=== PATIENT | male | born 1950 | race Caucasian/White ===

== ENCOUNTER 2021-06-01 23:28 | Inpatient (IN) | payer MEDICARE ==
[~2021-06-01] VITALS: Ht 177.8 cm; Wt 100.0 kg
--- NOTE | 2021-06-01 23:40 | NUR ---
PT AMBULATORY TO ROOM FOR TRIAGE AT BEDSIDE. PT CHANGED TO GOWN/BLANKET/PILLOW GIVEN.
[2021-06-02] VITALS (9 sets, daily range): BP systolic 112–155; BP diastolic 56–90
[2021-06-02 00:11] LABS: HEMATOCRIT 42.2 % (39.0-50.0); IMMATURE GRANULOCYTES 0.1 % (0.0-5.0); MEAN CELL VOLUME 99.5 fL CALC (80.0-100.0); MEAN CORPUSCULAR HGB CONC 33.2 g/dL CAL (32.0-36.0); NEUT# 8.2 thou/uL (1.82-7.42); RED BLOOD COUNT 4.24 mill/uL (4.70-6.10); RED CELL DISTRI WIDTH 12.3 % (11.5-15.5)
[2021-06-02 00:16] LABS: ALBUMIN 4.5 g/dL (3.2-5.0); ALKALINE PHOSPHATASE 72 u/l (38-126); AMYLASE 69 u/l (30-110); ANION GAP 11 (6-22 (CALC)); BILIRUBIN, TOTAL 0.6 mg/dL (0.0-1.4); BUN 17 mg/dL (8-23); BUN/CREATININE RATIO 16 (12-20 (CALC)); CARBON DIOXIDE 29 mmol/l (22-30); CHLORIDE 108 mmol/l (95-108); GFR > 60 ML/MIN (>=60 (CALC)); GFR FOR AFR.AMER. > 60 ML/MIN (>=60 (CALC)); LIPASE 89 u/l (23-300); POTASSIUM 4.6 mmol/l (3.5-5.1); SGOT/AST 28 u/l (19-48); SODIUM 143 mmol/l (137-146); TOTAL PROTEIN 7.4 g/dL (6.3-8.2)
[2021-06-02 00:27] LABS: MYOGLOBIN 34 ng/mL (0 - 121)
--- NOTE | 2021-06-02 00:52 | NUR ---
REMEDIATED FOR ABD PAIN
--- NOTE | 2021-06-02 01:43 | NUR ---
PAIN AND NAUSEA HAVE COMPLETELY RESOLVED PT TELLS ME
--- NOTE | 2021-06-02 02:08 | NUR ---
18F SALEM SUMP INSERTED PER L NARE TO GASTRUM POSITION CONFIRMED AND CLEAR LIQUIS MOD PRICILLA WITH FOOD FRAGMENTS ASPIRATED PT APPEARES COMFORTABLE
--- NOTE | 2021-06-02 03:15 | NUR ---
REPORT RECEIVED FROM LINCOLN RN
--- NOTE | 2021-06-02 03:15 | NUR ---
PT HAS 500CC CLEAR LIQUID WITH PARTIALLY DIGESTED FOOD FRAGMENTS IN SUSPENSION PT REPORT TO NURSE PADRON ON MS
--- NOTE | 2021-06-02 03:20 | NUR ---
PT TRANSPORTED VIA STRETCHER TO [facility] 277 IN STABLE CONDITION
--- NOTE | 2021-06-02 03:30 | NUR ---
PATIENT ARRIVED TO FLOOR VIA STRETCHER ACCOMPANIED BY LINCOLN CULP
--- NOTE | 2021-06-02 03:30 | NUR ---
PT ALERT AND ORIENTED X3. NG TUBE IN LEFT NARE. CLEAR LUNG SOUNDS, NORMAL HEART SOUNDS. STOMACH DISTENDED BUT SOFT. ACTIVE BOWEL SOUNDS, LAST BOWEL MOVEMENT 06/02, NPO STATUS DISCCUSED. DISCOMFORT THROUGHOUT QUADRANTS. #20 IN LEFT AC. INFUSING NS AT 125ML/HR. CARE PLAN REVIEWED, CALL LIGHT AND BEDSIDE TABLE WITHIN REACH.
--- NOTE | 2021-06-02 03:38 | NUR ---
PT REORT TO NURSE NEREIDA. PT IS PAIN FREE 500CC CLEAR LIQUID WITH PARTRIALLY DIGESTED FOOD FRAGMENTS IN SUSPENSION.
--- NOTE | 2021-06-02 06:00 | NUR ---
PATIENT NG TUBE NOT SUCCTIONING, REPOSTIONED CANISTER AND ADJUSTED SUCCION, 100 ML OUT.
--- NOTE | 2021-06-02 07:30 | NUR ---
RECIEVED REPORT FROM ROBBI PADRON
--- NOTE | 2021-06-02 08:08 | NUR ---
PT RESTING IN SEMI FOWLERS POSITION. PT IS A/O X3. ASSESSMENT AND VITALS COMPLETED. BP 118/82, HR 108, O2 92% ON ROOM AIR. REPSIRATIONS ARE EVEN AND UNLABORED. LUNG SOUNDS ARE CLEAR. HEART RHYTHM NORMAL. BOWEL SOUNDS ACTIVE,LBM 06/01/21.ABD FIRM AND DISTENDED. LEFT NG TUBE NOTED, ABOUT 200 OR ORANGE OUTPUT NOTED. PT CONTINUES TO VOMIT, PT MEDICATED PER EMAR.PT ASSISTED TO CHAIR TO ASSIST WITH GETTING CLEANED UP. PT DENIES OF ANY ADDITIONAL NEEDS AT THIS TIME. ALL SAFETY PRECAUTIONS ARE IN PLACE WITH CALL LIGHT IN REACH. WILL CONTINUE TO MONITOR.
--- NOTE | 2021-06-02 09:30 | NUR ---
DR OTT AND DELFINA,ANCHARLES AT BEDSIDE
--- NOTE | 2021-06-02 11:39 | NUR ---
CYLINDRICAL MIXER INFORMED THAT PT WOULD BE GOING DOWN TO SURGERY LATER IN AFTER NOON. NO NEW ORDERS OBATINED. PT INFORMED
--- NOTE | 2021-06-02 12:15 | NUR ---
PT COMPLAINS OF NAUSEA AND ABD PAIN. DAILUDID ADMINISTERED. VITALS OBATINED BP 155/90, HR 105, O2 84% ON ROOM AIR. 3L NC APPLIED, 93%. RESPIRATIONS REMAINS EVEN AND UNLABORED. #20G LAC REMAINS INFUSING WITH IVF PER ORDER, SITE REMAINS HEALTHY AND PATENT. ADDITINAL EMISIS BAGS PROVIDED. ZOFRAN OR PHENERGAN NOT AVAILABLE AT THIS TIME. ALL SAFTEY PRECAUTIONS ARE IN PLACE WITH CALL LIGHT IN REACH AT BEDSIDE. WILL CONTINUE TO MONITOR
--- NOTE | 2021-06-02 14:36 | NUR ---
PT TRANSPORTED TO OR VIA BED ACCOMPAINED BY OR STAFF IN STABLE CONDITION. LEFT NGT IN PLACE.
--- NOTE | 2021-06-02 18:14 | NUR ---
PT ARRIVED TO [facility] ROOM 277 FROM OR. PT IS A/O X3 BUT DROWSY.VITALS OBATINED. RESPIRATIONS ARE EVEN AND UNLABORED ON 5L NRB. LUNG SOUNDS DIMINISHED.I.S ADMINISTERED. PT TO BE RE-EDUACTED WHEN MORE AWAKE. HEART RHYTHM NORMAL WITH TELE IN PLACE. BOWEL SOUNDS HYPOACTIVE. DRESSING TO ABD REMAINS CDI. ABD BINDER REMAINS IN PLACE. PT COMPLAINS OF ABD PAIN, PT MEDICATED WITH SCHEDULED MEDICTIONS. JUNG CATH IN PLACE. URINE SAMPLE COLLECTED VIA STERILE TECHNIQUE.SCDS IN PLACE. PT DENIES OF ANY ADDITIONAL NEEDS AT THIS TIME. ALL SAFETY PRECAUTIONS ARE IN PLACE WITH CALL LIGHT IN REACH .
[2021-06-02 19:07] LABS: URINE BILIRUBIN - DIPSTICK NEGATIVE (NEGATIVE); URINE BLOOD DIPSTICK NEGATIVE (NEGATIVE); URINE COLOR YELLOW; URINE GLUCOSE - DIPSTICK NEGATIVE (NEGATIVE); URINE KETONE TRACE mg/dL (NEGATIVE); URINE LEUK ESTERASE NEGATIVE (NEGATIVE); URINE PH 6.5 (4.5-8.0); URINE PROTEIN - DIPSTICK NEGATIVE (NEG-TRACE); URINE SPECIFIC GRAVITY 1.025; URINE UROBILINOGEN - DIPSTICK 0.2 E.U./dL (0.2)
[2021-06-02 19:11] LABS: URINE NITRITE - DIPSTICK NEGATIVE (Negative)
--- NOTE | 2021-06-02 20:00 | NUR ---
PATIENT RESTING IN BED AT THIS TIME-AWAKE ALERT AND ORIENTEDX3. O2 VIA O2 MASK IN PLACE WITH O2 SATS WNL. TELE MONITOR IN PLACE WITH LAST READING SR-93. NPO AT THIS TIME EXCEPT FOR SMALL AMT OF ICE CHIPS. NGT TO LEFT NARE INTACT AND DRAINING YELLOW ORANGE FLUID-LIWS. IVF NS PATENT AND INFUSING VIA LEFT AC SITE AT 125CC/HR. JUNG CATH PATENT AND DRAINING KELSI URINE. ABD DRESSINGS INTACT-CLEAN AND DRY. ABD IS DISTENDED WITH BS+. ABD BINDER IN PLACE. SCD'S IN PLACE. INSTRUCTED ON USE OF IS Q1H WHILE AWAKE IN REPS OF 10. ABLE TO DEMONSTRATE PROPER USE OF THE DEVICE. TEMPS IS DOWN AT THIS TIME. SAFETY PRECAUTIONS REINFORCED. CALL LIGHT IN REACH. WILL CONT TO MONITOR.
--- NOTE | 2021-06-02 21:30 | NUR ---
PATIENT RESTING IN BED-MEDICATED [facility] ORDERED VIA LAC SITE. CALL LIGHT IN REACH. WILL CONT TO MONITOR.
--- NOTE | 2021-06-02 22:17 | NUR ---
PATIENT RESTING IN BED AT THIS TIME-MEDICATED FOR PAIN WITH DILAUDID 1MG IVP VIA LEFT AC SITE. IVF NS PATIENT AND INFUSING AT 125CC/HR. SITE REMAINS HEALTHY AT THIS TIME.CALL LIGHT IN REACH. WILL CONT TO MONITOR.
[2021-06-03] VITALS: BP 98/55
--- NOTE | 2021-06-03 03:31 | NUR ---
PATIENT RESTING IN BED AT THIS TIME WITH HOB ELEVATED IN HIGH FOWLERS POSITION. PATIENT IS AWAKE-PAIN LEVEL AT 2-3 AT THIS TIME. NG TUBE TO LIWS DRAINING ORANGE FLUID AT THIS TIME. JUNG PATENT AND DRAINING KELSI URINE. IVF NS PATENT AND INFUSING VIA LAC SITE AT 125CC/HR. SITE REMAINS HEALTHY AT THIS TIME. O2 VIA MASK IN PLACE AT 5LPM-O2 SATS 94% AT THIS TIME. SCD'S IN PLACE. ABD DRESSING INTACT WITH ABD BINDER IN PLACE. REMAINS NPO TAKING ONLY SMALL AMT OF ICE CHIPS. SAFETY PRECAUTIONS REINFORCED. CALL LIGHT IN REACH. WILL CONT TO MONITOR.
[2021-06-03 04:00] VITALS: BP 111/58
--- NOTE | 2021-06-03 05:12 | NUR ---
PATIENT RESTING IN BED-NG TUBE CONT TO DRAIN YELLOW ORANGE FLUID. IVF NS PATENT AND INFUSING VIA LEFT AC AT 125CC/HR. PATIENT MEDICATED FOR PAIN WITH DILAUDID 1MG IVP FOR 4/10 ON PAIN SCALE. JUNG PATENT AND DRAINING KELSI URINE. ABD DRESSINGS REMAIN CDI. ABD BINDER IN PLACE. O2 VIA NASAL MASK IN PLACE. TELE MONITOR IN PLACE. CALL LIGHT IN REACH. WILL CONT TO MONITOR.
[2021-06-03 05:49] LABS: HEMOGLOBIN 12.7 g/dl (14.0-18.0); MEAN CELL VOLUME 101.6 fL CALC (80.0-100.0); MEAN CORPUSCULAR HGB 33.1 pG CALC (26.0-32.0); MEAN CORPUSCULAR HGB CONC 32.6 g/dL CAL (32.0-36.0); RED BLOOD COUNT 3.84 mill/uL (4.70-6.10); RED CELL DISTRI WIDTH 12.7 % (11.5-15.5)
[2021-06-03 06:04] LABS: CREATININE 1.8 mg/dL (0.7-1.3); MAGNESIUM 1.5 mg/dL (1.6-2.3); POTASSIUM 3.9 mmol/l (3.5-5.1)
[2021-06-03 07:33] VITALS: BP 116/67
--- NOTE | 2021-06-03 07:39 | NUR ---
SHIFT CHANGE REPORT, PT AWAKE ALERT AND ORIENTED RESTING IN BED, O2 @ 5L VIA FACE MASK IN PLACE, NG TUBE IN PLACE TO LEFT NARE, TELE MONITOR IN PLACE, JUNG CATHETER IN PLACE DRAINING CLEAR KELSI URINE, SCD IN PLACE. DR PEREZ HERE NOW ROUNDING, GAVE VERBAL ORDERS TO RO REMOVE NG TUBE AND JUNG CATHETER. CALL JAMESON IN REACH, WILL CONTINUE TO MONITOR.
--- NOTE | 2021-06-03 10:00 | NUR ---
NG TUBE REMOVED PER ORDER
[2021-06-03 10:51] VITALS: BP 118/71
--- NOTE | 2021-06-03 12:00 | NUR ---
AMBULATING IN ROOM, ANALGESIC RELIEVED PAIN, URINATED AFTER REMOVING CATHETER, WILL CONTINUE TO MONITOR.
[2021-06-03 15:15] VITALS: BP 130/70
--- NOTE | 2021-06-03 16:00 | NUR ---
CONTINUES TO AMBULATE IN ROOM, C/O MILD BLOATING DISCOMFORT TO ABDOMEN REPORTS BURPING BUT NOT PASSING FLATULENCE YET, FAMILY MEMBERS VISITING, WILL CONTINUE TO MONITOR.
[2021-06-03 19:00] VITALS: BP 134/82
--- NOTE | 2021-06-03 20:00 | NUR ---
PATIENT SITTING UP IN BED-AWAKE ALERT AND ORIENTEDX3. PATIENT TAKING PO FLUJIDS AND TOLERATING WELL. PATIENT DENIES ANY N/V AT THIS TIME. ABD IS DISTENDED-SOFT. HYPOACTIVE BS AT THIS TIME. ABD DRESSING IS CDI WITH ABD BINDER IN PLACE. TELE MONITOR IN PLACE. IVF NS PATENT AND INFUSING VIA LAC SITE AT 125CC/HR. SITE REMAINS HEALTHY AT THIS TIME. SCD'S IN PLACE. VOIDED 300CC OF KELSI URINE IN URINAL. ENCOURAGED USE OF IS Q1H W/A. PATIENT IS ABLE TO DEMONSTRATE PROPER USE OF THE DEVICE. SAFETY PRECAUTIONS REINFORCED. CALL LIGHT IN REACH. WILL CONT TO MONITOR.
--- NOTE | 2021-06-03 22:00 | NUR ---
PATIENT IS UP AND AMBULATING IN THE HALLS SEVERAL TIMES-TOLERATED FAIR-OUT OF BREATH AFTER APPROX 10MINS OF AMBULATING IN THE BONDS AND RETURNED TO BED. O2 SAT IS IN THE HIGH 80'S. O2 VIA NASAL CANNULA AT 2LPM REAPPLIED AND O2 SAT BACK UP TO THE LOW TO MID 90'S. PATIENT MEDICATED FOR POST-OP PAIN WITH DILAUDID 1MG IVP ORDERED FOR PAIN. SAFETY PRECAUTIONS REINFORCED. CALL LIGHT IN REACH. WILL CONT TO MONITOR.
--- NOTE | 2021-06-03 23:46 | NUR ---
PATIENT SITTING UP IN BED WITH O2 VIA NASAL CANNULA IN PLACE AT 2LPM. EYES ARE CLOSED. RESPS ARE EVEN AND UNLABORED. TELE MONITOR IN PLACE. IVF NS PATENT AND INFUSING VIA LAC SITE AT 125CC/HR. ZOSYN HUNG ORDERED. CALL LIGHT IN REACH. WILL CONT TO MONITOR.
[2021-06-04] VITALS: BP 138/83
[2021-06-04 03:55] VITALS: BP 147/85
[2021-06-04 05:44] LABS: HEMATOCRIT 34.7 % (39.0-50.0); HEMOGLOBIN 11.2 g/dl (14.0-18.0); MEAN CELL VOLUME 101.8 fL CALC (80.0-100.0); MEAN CORPUSCULAR HGB 32.8 pG CALC (26.0-32.0); MEAN CORPUSCULAR HGB CONC 32.3 g/dL CAL (32.0-36.0); RED BLOOD COUNT 3.41 mill/uL (4.70-6.10); RED CELL DISTRI WIDTH 12.4 % (11.5-15.5)
--- NOTE | 2021-06-04 05:52 | NUR ---
PATIENT SITTING ON THE SIDE OF THE BED-MEDICATED FOR POST-OP PAIN WITH DILAUDID 1MG IVP. ZOSYN HUNG AND INFUSING ORDERED. IVF NS PATENT AND INFUSING AT 125CC/HR. TELE MONITOR IN PLACE. IV SITE TO LAC REDRESSED. ABD IS DISTENDED-NO FLATUS YET. SAFETY PRECAUTIONS REINFORCED. CALL LIGHT IN REACH. WILL CONT TO MONITOR.
[2021-06-04 06:17] LABS: ANION GAP 9 (6-22 (CALC)); BUN 19 mg/dL (8-23); BUN/CREATININE RATIO 22 (12-20 (CALC)); CARBON DIOXIDE 25 mmol/l (22-30); CHLORIDE 107 mmol/l (95-108); CREATININE 0.9 mg/dL (0.7-1.3); GFR > 60 ML/MIN (>=60 (CALC)); GFR FOR AFR.AMER. > 60 ML/MIN (>=60 (CALC)); POTASSIUM 3.5 mmol/l (3.5-5.1); SODIUM 138 mmol/l (137-146)
--- NOTE | 2021-06-04 07:00 | NUR ---
RECIEVED REPORT FROM ROBBI INIGUEZ
[2021-06-04 08:19] VITALS: BP 128/77
--- NOTE | 2021-06-04 08:19 | NUR ---
PT RESTING IN SEMI FOWLERS POSITION. PT IS A/O X3. ASSESSMENT AND VITALS COMPLETED. BP 128/77, HR 91, O2 96% ON 2L NC. RESPIRATIONS ARE EVEN AND UNLABROED WITH NO DISTRESS NOTED. LUNG SOUNDS ARE CLEAR. HEART RHYTHM NORMAL WITH TELE IN PLACE. BOWEL SOUNDS ARE HYPOACTIVE, PT STATES HE HS PASSED A LITTLE GAS, LBM 12/26. PULSES STRONG. #20G LAC INFUSING WITH IVF PER ORDER, SITE REMAINS HEALTHY AND PATENT. SKIN INTACT. DRESSING TO ABD REMAINS CDI. ABD BINDER IN PLACE. I.S AT BEDSIDE, PT RE-EDUCATED ON USE, PT VERBALIZED UNDERSTANDING. PT COMPLAINS OF 4/10 PAIN, PT TO BE MEDICATED PER EMAR. ALL SAFETY PRECAUTIONS ARE IN PLACE WITH CALL LIGHT IN REACH. WILL CONTINUE TO MONITOR.
--- NOTE | 2021-06-04 10:15 | NUR ---
PT TRANSPORTED TO RADIOLOGY VIA WHEECHAIR ACCOMPAINED BY TENZIN TRENT
--- NOTE | 2021-06-04 10:20 | NUR ---
PT ARRIVED BACK TO [facility] ROOM 277 VIA WHEELCHAIR IN STABLE CONDITION. PT ASSISTED BACK INTO BED. PT DENIES OF ANY NEEDS. ALL SAFETY PRECAUTIONS ARE IN PLACE. WILL CONTINUE TO MONITOR
[2021-06-04 10:50] VITALS: BP 133/74
--- NOTE | 2021-06-04 11:20 | NUR ---
DR JONES AND DELFINA,ANRP AT BEDSIDE
--- NOTE | 2021-06-04 13:15 | NUR ---
DR PEREZ AT BEDSIDE
--- NOTE | 2021-06-04 13:27 | NUR ---
DRESSING T ABD CHANGED. NONADHESIVE, ABD PAD AND TAPE APPLIED. PT TOLERATED WELL. ABD BNDER REAPPLIED. RESPITRATIONS REMAINS EVEN AND UNLABORED WITH NO DISTRESS NOTED. NEW #22G LH STARTED. #20G LAC LEAK, REMOVED WITH CATH STILL INTACT. TELE MONTORING IN PLACE. PT REQUEST PAIN MEDIACTION. PT TO BE MEDICATED PER EMAR. ALL SAFETY PRECAUTIONS ARE IN PLACE WITH CALL LIGHT IN REACH. WILL CONTINUE TO MONITOR
[2021-06-04 15:46] VITALS: BP 157/83
--- NOTE | 2021-06-04 16:35 | NUR ---
PT RESTING IN SEMI FOWLERS POSITION. RESPIRATIONS AREMAINS EVEN AND UNLABORED WITH NO DISTRESS NOTED. #22G LH REMAINS IN PLACE. TELE MONITORING IN PLACE. DRESSING TO ABD REMAINS CDI WITH ABD BINDER IN PLACE. PT COMPLAINS OF 7/10 PAIN, PT TO BE MEDICATED PER EMAR. PT DENIES OF ANY ADDITIONAL PAINS OR DISCOMFORTS AT THIS TIME. ALL SAFETY PRECAUTIONS ARE IN PLACE WITH CALL LIGHT IN REACH. WILL CONTINUE TO MONITORING.
--- NOTE | 2021-06-04 17:07 | NUR ---
REASSESSMENT OF TEMP RESULTING IN 103.6. TYLENOL ADMINISTERED. PT MEDICATED FOR 7/10 ABD PAIN. WILL CONTINUE TO MONITOR
--- NOTE | 2021-06-04 18:18 | NUR ---
REASSESSMENT OF TEMP RESULTING IN 101.4. PT STATES ROOM IS HOT. FAN TURNED ON FOR PT
[2021-06-04 19:13] VITALS: BP 148/72
--- NOTE | 2021-06-04 19:37 | NUR ---
PATIENT SITTING UP IN BED AT TH IS TIME-AWAKE ALERT AND ORIENTEDX3. AFEBRILE AT 98.8. ABD IS DISTENDED AND FIRM. BS ARE HYPOACTIVE AT THIS TIME. PATIENT STATES THAT HE IS CRAMPING JUST A LITTLE BIT-NO FLATUS. ABD DRESSINGS ARE CDI. TELE MONITOR IN PLACE. IV SITE TO LEFT HAND IS INTACT-HEALTHY AT THIS TIME. ENCOURAGED USE OF IS Q1H WHILE AWAKE-LUNGS ARE CLEAR. NO PERIPHERAL EDEMA NOTED-PULSES ARE PALPABLE. AMBULATING IN THE HALLS. STEADY ON HIS FEET. WILL CONT TO MONITOR.
--- NOTE | 2021-06-04 22:10 | NUR ---
PATIENT RESTING IN BED-STATES THAT HE IS PASSING SOME GAS NOW. CALL LIGHT IN REACH. WILL CONT TO MONITOR.
--- NOTE | 2021-06-04 22:55 | NUR ---
PATIENT RESTING IN BED AT THIS TIME-C/O ABD CRAMPING AND PAIN. MEDICATED WITH DILAUDID 1MG IVP FOR 6/10 POST-OP PAIN VIA LEFT HAND SITE. CALL LIGHT IN REACH. WILL CONT TO MONITOR.
[2021-06-05 00:12] VITALS: BP 151/73
--- NOTE | 2021-06-05 00:14 | NUR ---
TEMP 100.1-MEDICATED FOR TEMP WITH TYLENOL 650MG PO. ZOSYN INFUSED ORDERED.ENCOURAGED PAIENT TO CONT TO USE IS Q1H WHILE AWAKE. CALL LIGHT IN REACH. WILL CONT TO MONITOR.
[2021-06-05 04:00] VITALS: BP 116/68
--- NOTE | 2021-06-05 05:02 | NUR ---
RESTING IN BED-LAST TEMP WAS 99.2 AFTER TYLENOL. ABD REMAINS DISTENDED. ABD BINDER IN PLACE. NO COMPLAINTS OF NAUSEA AT THIS TIME. TELE MONITOR IN PLACE WITH LAST READING SR-81. CALL LIGHT IN REACH. WILL CONT TO MONITOR.
[2021-06-05 05:23] LABS: HEMATOCRIT 33.8 % (39.0-50.0); HEMOGLOBIN 11.1 g/dl (14.0-18.0); IMMATURE GRANULOCYTES 0.2 % (0.0-5.0); MEAN CELL VOLUME 100.3 fL CALC (80.0-100.0); MEAN CORPUSCULAR HGB 32.9 pG CALC (26.0-32.0); MEAN CORPUSCULAR HGB CONC 32.8 g/dL CAL (32.0-36.0); NEUT# 10.26 thou/uL (1.82-7.42); RED BLOOD COUNT 3.37 mill/uL (4.70-6.10); RED CELL DISTRI WIDTH 12.1 % (11.5-15.5)
[2021-06-05 05:52] LABS: ALKALINE PHOSPHATASE 58 u/l (38-126); ANION GAP 9 (6-22 (CALC)); BUN 11 mg/dL (8-23); BUN/CREATININE RATIO 14 (12-20 (CALC)); CARBON DIOXIDE 28 mmol/l (22-30); CHLORIDE 105 mmol/l (95-108); CREATININE 0.8 mg/dL (0.7-1.3); GFR > 60 ML/MIN (>=60 (CALC)); GFR FOR AFR.AMER. > 60 ML/MIN (>=60 (CALC)); POTASSIUM 3.6 mmol/l (3.5-5.1); SGOT/AST 25 u/l (19-48); SODIUM 137 mmol/l (137-146)
[2021-06-05 05:59] LABS: BILIRUBIN, TOTAL 1.1 mg/dL (0.0-1.4); TOTAL PROTEIN 5.5 g/dL (6.3-8.2)
--- NOTE | 2021-06-05 06:41 | NUR ---
PATIENT RESTING IN BED-STILL WITH ABD DISTENSION. DENIES NAUSEA. C/O ABD CRAMPING AND PAIN. MEDICATED WITH DILAUDID 1MG IVF FOR 5/10 ON PAIN SCALE. ENCOURAGED PATIENT TO AMBULATE AND US IS Q1H WA. CALL LIGHT IN REACH, WILL CONT TO MONITOR.
--- NOTE | 2021-06-05 07:42 | NUR ---
DR PEREZ AT BEDSIDE
[2021-06-05 07:44] VITALS: BP 152/55
--- NOTE | 2021-06-05 07:44 | NUR ---
PT SITTING UP IN CHAIR UPON ENTERING ROOM. PT IS A/OX3. ASSESSMENT AND VITALSN COMPLETED. BP 152/55, HR 89, O2 93% ON 2L NC. RESPIRATIONS ARE EVEN AND UNLABORED WITH NO DISTRESS NOTED. LUNG SOUNDS ARE CLEAR. HEART RHYTHM NORMAL WITH TELE IN PLACE, SR PER ER MONITORING. BOWEL SOUNDS HYPOACTIVE, LBM 06/01/21. PT REPORTS SMALL AMOUNT OF GAS. #22G LH FLUSHED, SITE APPEARS HEALTHY AND PATENT. SKIN INTACT. DRESSING TO ABD REMAINS CDI. ABD BINDER IN PLACE. PT COMAPLAINS OF 2/00 PAIN AFTER DILAUDID. PT DENIES OF ANY ADDITIONAL NEEDS AT THIS TIME. ALL SAFTEY PRECAUTIONS ARE IN PLACE WITH CALL LIGHT IN REACH. WILL CONTINUE TO MONITOR
--- NOTE | 2021-06-05 08:21 | NUR ---
TYLENOL ADMINISTERED FOR TEMP. PT TOLERATED WELL. DRY ABD DRESSING REMOVD TO ALLOW PT TO SHOWER. WILL CONTINUE TO MONITOR
--- NOTE | 2021-06-05 09:28 | NUR ---
DRY DRESSING APPLIED TO SURGICAL SITE. 10 STAPLE ACCOUNTED FOR. NONADESIVE,GUAZE AND TEGADERM APPLIED. SMALL BLISTERED NOTED TO LLQ, POSSIBLY FROM TAPE OF PREVIOUS DRESSING. ABD BINDER REAPPLIED. PT REQUEST TO AMBULATE IN BONDS. STEADY GAIT NOTED.
--- NOTE | 2021-06-05 10:53 | NUR ---
DR JONES AND DELFINA,ANRP AT BEDSIDE
[2021-06-05 11:00] VITALS: BP 113/57
--- NOTE | 2021-06-05 11:19 | NUR ---
PT RESTING IN SEMI FOWLERS POSITION. RESPIRATIONS ARE EVEN AND UNLABORED ON 2L NC. #22G LH EMAINS IN PLACE. TELE MONITORING IN PLACE. ABD DRESSING REMAINS CDI WITH ABD BINDER IN PLACE. PT DENIES OF ANY PAINS OR DISCOMFORTS AT THIS TIME.ALL SAFTEY PRECAUTIONS ARE IN PLACE WITH CALL LIGHT IN REACH. WILL CONTINUE TO MONITOR
--- NOTE | 2021-06-05 12:20 | NUR ---
PT REPORTS MOD/FORMED/BROWN BM AT THIS TIME. NOTIFIED
[2021-06-05 15:05] VITALS: BP 150/72
--- NOTE | 2021-06-05 15:51 | NUR ---
PT MEDICATED FOR 4/10 ABD PAIN AND FEVER AT THIS TIME.
--- NOTE | 2021-06-05 16:03 | NUR ---
PT RESTING RESTING IN SEMI FOWLERS POSITION WITH AT BEDSIDE. RESPIRATIONS ARE EVEN AND UNLABORED ON 2L NC. #22G LH REMAINS IN PLACE. TELE MONITORING IN PLACE. ABD DRESSING AND ABD BINDER REMAINS IN PLACE. PT MEDICATED FOR PAIN.FRESH ICE WATER PROVIDED. PT DENIES OF ANY ADDITIONAL NEEDS. MAR[place]ZA SAFTEY PRECAUTIONS ARE IN PLACE WITH CALL LIGHT IN REACH. WILL CONTINUE TO MONITOR.
--- NOTE | 2021-06-05 17:01 | NUR ---
REASSESSMENT OF DIAULDID AT THIS TIME. PT STATES HE HAS NO PAIN. EXPRESSES CONCERS OF INCRESE CONFUSION. PT STATES HE HASNT HAD MUCH PAIN TODAY BUT FEEL JUST BAD HE DID 2 DAYS AGO. DELFINA,ANRP INFORMED.
--- NOTE | 2021-06-05 18:56 | NUR ---
FIRST DOSE OF ORAL CONTRAST ADMINISTERED. MIXED WITH APPLED JUICE/
[2021-06-05 19:00] VITALS: BP 132/68
--- NOTE | 2021-06-05 19:00 | NUR ---
REPORT RECEIVED FROM Starr GARNER LPN
--- NOTE | 2021-06-05 19:10 | NUR ---
PT JACKY WALKING THE HALLWAYS, STEADY GAIT ADVISED PATIENT TO STAY WITHIN VIEW FOR HIS OWN SAFETY. PT VERBALISES UNDERSTANDING.
--- NOTE | 2021-06-05 19:26 | NUR ---
SWCONF DOSE OF ORAL CONTRAST ADMINSTERED, 15ML MIXED WITH 250ML OF CRANBERRY JUICE PER PT REQUEST.
--- NOTE | 2021-06-05 19:45 | NUR ---
MULTIPLE CALLS TO CT, NO ANSWER, DIRECTOR ELECTRICAL ENGINEERING NOTIFIED.
--- NOTE | 2021-06-05 19:50 | NUR ---
CALL RETURNEDFROM CT, THEY ARE READY FOR PATIENT TO COME DOWN.
--- NOTE | 2021-06-05 19:50 | NUR ---
CALL RETURNEDFROM CT, THEY ARE READY FOR PATIENT TO COME DOWN.
--- NOTE | 2021-06-05 19:55 | NUR ---
PT DOWN TO CT VIA WHEELCHAIR WITH LAUNCH COMMANDER [employer] Latanya BENOIT
--- NOTE | 2021-06-05 19:56 | NUR ---
15ML OF ORAL CONTRAST SOLUTION MIXED WITH 250ML OF CRANBERRY JUICE PER PT REQUEST.
--- NOTE | 2021-06-05 20:04 | NUR ---
ATTEMPTX3 MADE TO CONTACT RADIOLOGY AT [facility] PROVIDED [facility], NO ANSWER, HOUSE SUP NOTIFIED.
--- NOTE | 2021-06-05 20:45 | NUR ---
MULTIPLE CALLS TO CT, NO ANSWER, AIRCRAFT LOADMASTER SUPERINTENDENT NOTIFIED.
--- NOTE | 2021-06-05 20:50 | NUR ---
CALL RETURNEDFROM CT, THEY ARE READY FOR PATIENT TO COME DOWN.
--- NOTE | 2021-06-05 20:55 | NUR ---
PATIENT DOWN TO CT ACCOMPANIED BY Latanya BENOIT CNA
--- NOTE | 2021-06-05 21:20 | NUR ---
PT BACK FROM CT SCAN VIA WHEELCHAIR ACCOMPANIED BY Latanya BENOIT CNA.
--- NOTE | 2021-06-05 21:23 | NUR ---
ADVISED PT HE IS TO WEAR OXYGEN AT ALL TIMES, R/T TO PREVIOUS SATS OF 85% ON ROOM AIR. NOTIFIED PROOFING MACHINE OPERATOR OF THIS EENT AND REPLACED OXYGEN PROMPTLY. PT CURRENLTY SATING 92% ON 2L VIA NASAL CANNULA
[2021-06-06] VITALS: BP 137/74
--- NOTE | 2021-06-06 00:26 | NUR ---
PATIENT SLEEPING SOUNDLY, AWOKEN BY WRITTER, UP TO THE BATHROOM AT THIS TIME. ASSITED BACK TO BED BY WRITTER.
[2021-06-06 04:00] VITALS: BP 138/77
[2021-06-06 05:29] LABS: ANION GAP 7 (6-22 (CALC)); BUN 9 mg/dL (8-23); BUN/CREATININE RATIO 12 (12-20 (CALC)); CARBON DIOXIDE 28 mmol/l (22-30); CHLORIDE 108 mmol/l (95-108); CREATININE 0.7 mg/dL (0.7-1.3); GFR > 60 ML/MIN (>=60 (CALC)); GFR FOR AFR.AMER. > 60 ML/MIN (>=60 (CALC)); POTASSIUM 3.5 mmol/l (3.5-5.1); SODIUM 139 mmol/l (137-146)
[2021-06-06 05:30] LABS: HEMATOCRIT 31.5 % (39.0-50.0); HEMOGLOBIN 10.4 g/dl (14.0-18.0); MEAN CELL VOLUME 99.4 fL CALC (80.0-100.0); MEAN CORPUSCULAR HGB 32.8 pG CALC (26.0-32.0); RED BLOOD COUNT 3.17 mill/uL (4.70-6.10); RED CELL DISTRI WIDTH 12.2 % (11.5-15.5)
[2021-06-06 05:43] LABS: MAGNESIUM 2.1 mg/dL (1.6-2.3)
--- NOTE | 2021-06-06 05:45 | NUR ---
PATIENT UP TO THE RESTROOM AT THIS TIME, COMPLAINING OF PAIN, MEDICATED PER EMAR
[2021-06-06 07:15] VITALS: BP 132/80
--- NOTE | 2021-06-06 07:15 | NUR ---
PATIENT SITTING UP IN CHAIR AT THIS TIME ALERT AND ORIENTED X3. PATIENT STATES HIS PAIN IS GENERALIZED AND IS ABOUT A 1-3 AT THIS TIME AND IS TOLERABLE. PATIENT WAS GIVEN A COVID TEST AT THIS TIME AND AWAITING RESULTS. HIGHWAY ADMINISTRATIVE ENGINEER WAS DONE SEE INTERVENTIONS. SAUNDRA HAS ACTIVE BOWEL SOUNDS AND LAST KNOWN BOWEL MOVEMENT WAS ON 06/06/21. PATIENTS ABDOMINAL AREA IS DISTENTD AND FIRM AND STATES IT HAS BEEN THIS WAY BUT PATIENT STATES HE IS PASSING GAS AND HAVING BOWEL MOVEMENTS. PATIENT LUNGS ARE CLEAR AND O2 REMAINS ON AT 2LITER AND SPO2 IS 100% PATIENT STATES AT TIMES HE FEELS SHORT OF BREATH. TELE MONITOR IS ON AND BEING MONITORED BY ED CALL LIGHT IS WIHTIN REACH WILL CONTINUE TO MONITOR. MID-LINE ABDOMINAL LAP SITES ARE DRY AND INTACT.
[2021-06-06 10:57] VITALS: BP 146/78
--- NOTE | 2021-06-06 11:41 | NUR ---
PATIENT SITTING UP IN CHAIR AT THIS TIME. PATIENT DENIES ANY NEEDS CURRENTLY WILL CONTINUE TO MONITOR.
--- NOTE | 2021-06-06 13:14 | NUR ---
PATIENT GIVEN HYDROCODONE 7.5MG/325MG FOR PAIN IN ABDOMINAL AREA OF 5 OUT OF PAIN SCALE OF 0-10. CALL LIGHT NEAR WILL CONTINUE TO MONITOR
--- NOTE | 2021-06-06 14:54 | NUR ---
PATIENT OUT WALKING HALLS WITH AT THIS TIME. PATIENT IS REQUESTING FOR DINNER TO HAVE OATMEAL AND BROWN SUGAR AND FRESH FRUIT. DIETARY CALLED AND ORDER PLACED.
--- NOTE | 2021-06-06 16:00 | NUR ---
PATIENT SITTING IN CHAIR AT THIS TIME. DRESSING REMOVED FROM ABDOMINAL WALL AND LAP SITED. 10 RAIN NOTED AND INTACT AND INCISIONS ARE APPROXIMATE AND CLEAN AND DRY. PATIENT IS UP TO SHOWER AND WILL REDRESS LAP SITES AFTER SHOWER.
--- NOTE | 2021-06-06 16:53 | NUR ---
NEW DRESSING APPLIED AT THIS TIME AND BINDER REAPPLIED. PATIENT DENIES ANY NEEDS CURRENTLY.
[2021-06-06 17:16] VITALS: BP 146/78
[2021-06-06 19:20] VITALS: BP 152/79
--- NOTE | 2021-06-06 19:50 | NUR ---
RESTING IN BED, IN SEMI FOWLERS POSITION WATCHING FOOTBALL. ASSESSMENT COMPLETE AT THIS TIME. NO SIGNS OF DISTRESS NOTED. C/O PAIN. WILL MEDICATE PATIENT WITH PRN PAIN MEDICATION ORDERED. CALL LIGHT AND BELONGINGS REMAIN IN REACH.
[2021-06-07] VITALS (7 sets, daily range): BP systolic 101–150; BP diastolic 58–82
--- NOTE | 2021-06-07 00:55 | NUR ---
HUNG PATIENTS IV ABT. NO COMPLAINTS VOICED AT THIS TIME. CALL LIGHT AND BELONGINGS REMAIN IN REACH.
--- NOTE | 2021-06-07 04:26 | NUR ---
PATIENT COMPLAINED OF PAIN. PRN PAIN MEDICATION GIVEN. NO SIGNS OF DISTRESS NOTED. FRESH ICE WATER PROVIDED BY DROP HAMMER SETTER UP AT BEDSIDE. CALL LIGHT AND BELONGINGS WITHIN REACH.
[2021-06-07 05:04] LABS: HEMATOCRIT 35.5 % (39.0-50.0); HEMOGLOBIN 11.4 g/dl (14.0-18.0); MEAN CELL VOLUME 100.6 fL CALC (80.0-100.0); MEAN CORPUSCULAR HGB 32.3 pG CALC (26.0-32.0); MEAN CORPUSCULAR HGB CONC 32.1 g/dL CAL (32.0-36.0); RED BLOOD COUNT 3.53 mill/uL (4.70-6.10); RED CELL DISTRI WIDTH 12.4 % (11.5-15.5)
[2021-06-07 05:21] LABS: ANION GAP 8 (6-22 (CALC)); BUN 8 mg/dL (8-23); BUN/CREATININE RATIO 9 (12-20 (CALC)); CARBON DIOXIDE 32 mmol/l (22-30); CHLORIDE 104 mmol/l (95-108); CREATININE 0.8 mg/dL (0.7-1.3); GFR > 60 ML/MIN (>=60 (CALC)); GFR FOR AFR.AMER. > 60 ML/MIN (>=60 (CALC)); MAGNESIUM 1.9 mg/dL (1.6-2.3); POTASSIUM 3.4 mmol/l (3.5-5.1); SODIUM 140 mmol/l (137-146)
--- NOTE | 2021-06-07 06:13 | NUR ---
CALL OUT TO PROVIDER ON PATIENTS PROCALCITONIN LAB (CRITICAL). WILL CALL PROVIDER AGAIN.
--- NOTE | 2021-06-07 06:33 | NUR ---
CALL OUT #2 TO STERILE PROCESS TECH PROVIDER TO INFORM OF PATIENTS CRITICAL PROCALCITONIN LEVEL. NO ANSWER AT THIS TIME. WILL INFORM DAY SHIFT NURSE TO KEEP TRYING TO REACH PROVIDER.
--- NOTE | 2021-06-07 07:00 | NUR ---
RECIEVED REPORT FROM ROBBI BENAVIDES
--- NOTE | 2021-06-07 08:10 | NUR ---
PT RESTING IN RECYLINER WATCHING TV. PT IS A/O X3. ASSESSMENT AND VITALS COMPLETED. BP 134/82, HR 89, O2 93% ON 2L NC. RESPIRATIONS ARE EVEN AND UNLABORED WITH NO DISTRESS NOTED.LUNG SOUNDS CLEAR. HEART RHYTHM NORMAL WITH TELE IN PLACE. BOWEL SOUNDS ARE ACTIVE. #22G RH FLUSHED,SITE APPEARS HEALTHY AND PATENT. SKIN INTACT.1+EDEMA NOTED TO BLE.PULSES STRONG. DRESSING TO ABD REMAINS CDI,ABD BINDER IN PLACE. PT COMPLAINS OF 3/10 ABD PAIN,PAIN MEDICATION YET DUE. PT DENIES OF ANY ADDITIONAL NEEDS AT THIS TIME. ALL SAFETY PRECAUTIONS ARE IN PLACE WITH CALL LIGHT IN REACH. WILL CONTINUE TO MONITOR
--- NOTE | 2021-06-07 10:02 | NUR ---
S/O GREGORY NEELY is a 70 year old Male. Admitted for Leukocytosis and BL lower lobe infiltrates, currently being treated with Zosyn 4.5g IV q6h. Blood Culture culture is pending. Ht: 70 in, Wt: 102kg, DW: 85Kg, SCr:1, CrCl (calc) = 85 ml/min WBC: 8.6, Tmax: 100.9. Tcurrent: 99.3 HR: 89 beats/min, BP: 134/82 mmHg, RR 19 breaths/min,Sa02: 93% A/P Goal level is 15-20 mg/L. 1. Start Vancomycin 1250mg IV q12h. 2. Check trough on 06/08/20 at 2130, prior to the 4th dose. 3. Monitor BMP daily while on Vancomycin. Pharmacy will continue to follow.
--- NOTE | 2021-06-07 10:45 | NUR ---
DR JONES AND DELFINA,ANRP AT BEDSIDE
--- NOTE | 2021-06-07 12:04 | NUR ---
REASSESSMENT OF PAIN AT THIS TIME RESULTING IN 07/17. REPSIRATIONS REMAINE EVEN AND UNLABORED WITH NO DISTRESS ON 2L NC. #22G RH INFUSING WITH VANCO PER ORDER, SITE REMAINS HELATHY AND PATENT. TELE MONITORING IN PLACE. ABD DRESSING AND BINDER REMAINS IN PLACE. PT DENIES OF ANY ADDIITONAL NEEDS AT THIS TIME. PT REMAINS IN CHAIR WITH AT BEDSIDE
--- NOTE | 2021-06-07 14:50 | NUR ---
PT REQUEST FOR NEW IV TO BE STARTED DUE TO #22G RH HURTING. IV REMOVED WITH CATH STILL INTACT. #22G RAC STARTED, SITE APPEARS HEALTHY AND PATENT.
--- NOTE | 2021-06-07 16:11 | NUR ---
PT SITTING IN CHAIR WATCHING TV WITH DAUGHTER AT BEDSIDE. RESPIRATIONS ARE EVEN AND UNLABORED WITH NO DISTRESS NOTED ON 2L NC. #22G RAC REMAINS PATENT. TELE MONITORING IN PLACE. ABD DRESSING REMAINS CDI,ABD BINDER IN PLACE. PT DENIES OF ANY PAINS OR DISCOMFORTS. ALL SAFTEY PRECAUTIONS PRECAUTIONS ARE IN PLACE WITH CALL LIGHT IN REACH. WILL CONTINUE TO MONITOR
--- NOTE | 2021-06-07 19:25 | NUR ---
PT MEDICATED FOR PAIN 5/10 PER EMAR, LOW GRADE JOSE ALSO NOTED.
--- NOTE | 2021-06-07 19:35 | NUR ---
PREFILLED HUMIDIFIER ATTACHED TO OXYGEN FOR COMFORT.
--- NOTE | 2021-06-08 | NUR ---
PATIENT AWAKE, AND CONFUSED IN RELATION TO WHAT DAY IT IS, REORIENTED PATIENT. PT STATES HE HAD SUCH GOOD SLEEP THAT HE THOUGHT IT WAS THE NEXT DAY. CALL LIGHT AND BEDSIDE TABLE WIHTIN REACH.
[2021-06-08 04:00] VITALS: BP 108/57
--- NOTE | 2021-06-08 04:11 | NUR ---
PATIENT UP TO THE BATHROOM AT THIS TIME. AMBULATED WITH A STEADY GAIT. OXYGEN CURRENTLY AT 2 L VIA NASAL CANNULA. PT ASSITED BACK TO BED BY WRITTER, CALL LIGHT AND BEDSIDE TABLE WITHIN REACH.
[2021-06-08 05:00] LABS: HEMATOCRIT 29.9 % (39.0-50.0); HEMOGLOBIN 9.9 g/dl (14.0-18.0); MEAN CORPUSCULAR HGB 33.1 pG CALC (26.0-32.0); MEAN CORPUSCULAR HGB CONC 33.1 g/dL CAL (32.0-36.0); RED BLOOD COUNT 2.99 mill/uL (4.70-6.10); RED CELL DISTRI WIDTH 12.5 % (11.5-15.5)
[2021-06-08 05:08] LABS: ANION GAP 9 (6-22 (CALC)); BUN 8 mg/dL (8-23); BUN/CREATININE RATIO 10 (12-20 (CALC)); CARBON DIOXIDE 29 mmol/l (22-30); CHLORIDE 103 mmol/l (95-108); CREATININE 0.8 mg/dL (0.7-1.3); GFR > 60 ML/MIN (>=60 (CALC)); GFR FOR AFR.AMER. > 60 ML/MIN (>=60 (CALC)); POTASSIUM 3.1 mmol/l (3.5-5.1); SODIUM 138 mmol/l (137-146)
[2021-06-08 07:15] VITALS: BP 141/82
--- NOTE | 2021-06-08 07:15 | NUR ---
PATIENT LAYING IN BED AT THIS TIME. PATIENT DEINES ANY PAIN AT THIS TIME. ABDOMINAL INCISIONAL SITE DRESSING ARE DRY AND INTACT AT THIS TIME. PATIENT LUNG BHAKTA ARE CLEAR AND 02 ON AT 2L AND SPO2 IS 94%. CALL LIGHT IS NEAR SIDERAILS ARE UP X 2 TELE MONITOR ON AND BEING MONITORED BY ED.
--- NOTE | 2021-06-08 10:02 | NUR ---
REPORT RECEIVED FROM MARIELLA CAGE ALERT AND ORIENTED, C/O CONTINUED BLOATING AND VERY UNHAPPY HE DOESNT FEEL ANY BETTER AFTER EIGHT DAYS, UNABLE TO TOLERATE FOODS IT FEELS IF ITS STOPPING IN HIS EPIGASTRIC AREA. STATED HE HAS REPORTED CONDITION TO MD, NEW ORDERS WRITTEN, ADVISED TO GIVE MORE TIME FOR NEW TO HAVE POSITIVE RESULTS. WILL CONTINUE TO MONITOR.
[2021-06-08 10:45] VITALS: BP 139/80
--- NOTE | 2021-06-08 10:54 | NUR ---
DR VERDIN CONSULT PLACED AT THIS TIME BY THIS RECRUITMENT AND OUTREACH ASSISTANT
--- NOTE | 2021-06-08 13:10 | NUR ---
RESTING IN BED AT THIS TIME, PAIN ISSUES ADDRESSED, MD NOTIFIED OF CONCERNS OF PT AND SPOUSE AND INDUSTRIAL INSULATOR ADDRESSED, SPOUSE AT BEDSIDE AT THIS TIME VISITING.
[2021-06-08 14:45] VITALS: BP 132/76
--- NOTE | 2021-06-08 16:00 | NUR ---
AMBULATED HALLWAYS AND RESTING NOW, ALL NEEDS ADDRESSED.
[2021-06-08 19:12] VITALS: BP 138/74
--- NOTE | 2021-06-08 19:46 | NUR ---
PATIENT UP AND AMBULATING IN THE HALLS-STEADY ON HIS FEET. NOW SITTING UP IN THE RECLINER. ALERT AND ORIENTEDX3. PATIENT DOES GET SOB WITH EXHERSION. PATIENT WITH FINE CRACKLES NOTED IN HIS SHARRI BASES. ENCOURAGED TO U SE IS Q1H WHILE AWAKE. ABLE TO DEMONSTRATE PROPER USE OF THE DEVICE. INSTRUCTED PATIENT ON NEED FOR SPUTUM SPEC AND GIVEN CONTAINER TO PLACE SPEC. MINIMAL SHARRI PEDAL EDMA NOTED. PULSES ARE PALPABLE. ABD IS DISTENDED BUT SOFT. ACTIVE BS PRESENT. STATES THAT HE DID HAVE A COUPLE OF LOOSE BM'S TODAY. DENIES ANY DIFFICULTY WITH URINATION. ABD DRESSINGS ARE CDI AT THIS TIME. SAFETY PRECAUTIONS REINFORCED. CALL LIGHT IN REACH. WILL CONT TO MONITOR.
--- NOTE | 2021-06-08 22:35 | NUR ---
VANCO TROUGH IS 6. VANCO HUNG ORDERED VIA [facility] SITE. PATIENT RESTING IN BED WITH O2 ON AT THIS TIME. CALL LIGHT IN REACH. WILL CONT TO MONITOR.
[2021-06-09] VITALS (7 sets, daily range): BP systolic 126–136; BP diastolic 71–86
--- NOTE | 2021-06-09 00:51 | NUR ---
PATIENT RESTING IN BED-ZOSYN INFUSING VIA RAC IV SITE ORDERED. TELE MONITOR IN PLACE. O2 VIA NASAL CANNULA IN PLACE. CALL LIGHT IN REACH. WILL CONT TO MONITOR.
--- NOTE | 2021-06-09 05:00 | NUR ---
PATIENT SITTING UP IN THE CHAIR AT THIS TIME- STILL RUNNING LOW GRADE TEMP. TELE MONITOR IN PLACE. CALL LIGHT IN REACH. WILL CONT TO MONITOR.
--- NOTE | 2021-06-09 08:16 | NUR ---
SHIFT CHANGE REPORT, PT AWAKE ALERT AND ORIENTED SITTING UP IN CHAIR, CONTINUES TO EXPERIENCE ABDOMINAL DISCOMFORT OF BLOATING AND DISTENTION BUT STATES ITS SLIGHTLY GETTING BETTER, O2 @ 2L VIA NC IN PLACE, TELE MONITOR IN PLACE, CALL JAMESON IN REACH AND BED LOCKED IN LOWEST POSITION.
--- NOTE | 2021-06-09 09:51 | NUR ---
AMBULATING HALLWAYS AT THIS TIME.
--- NOTE | 2021-06-09 10:00 | NUR ---
DR PEREZ ROUNDED AND GAVE ORDERS TO REMOVE RAIN, 10 RAIN REMOVED FROM ABDOMINAL INCISIONS WITHOUT DIFFICULTY, PT TOLERATED WELL.
[2021-06-09 12:34] LABS: HEMATOCRIT 32.3 % (39.0-50.0); HEMOGLOBIN 10.5 g/dl (14.0-18.0); IMMATURE GRANULOCYTES 0.2 % (0.0-5.0); MEAN CELL VOLUME 98.2 fL CALC (80.0-100.0); MEAN CORPUSCULAR HGB 31.9 pG CALC (26.0-32.0); MEAN CORPUSCULAR HGB CONC 32.5 g/dL CAL (32.0-36.0); NEUT# 6.68 thou/uL (1.82-7.42); RED BLOOD COUNT 3.29 mill/uL (4.70-6.10); RED CELL DISTRI WIDTH 12.3 % (11.5-15.5)
--- NOTE | 2021-06-09 13:00 | NUR ---
ATE MEAL, AMBULATING IN HALLWAY, NO NEW COMPLAINS, WILL CONTINUE TO MONITOR.
--- NOTE | 2021-06-09 13:19 | NUR ---
S: GREGORY NEELY is a 70 M who presents with partial small bowel obstruction. He has a history of cluster headaches, GERD, knee pain, and fatty liver disease. All medications in patient's chart were reviewed. O: VS: BP 133/78 mmHg, P 90 bpm, RR 20 bpm, T 98.7 F W: 103 kg, HT: 177.8 cm, Scr= 1 mg/dL, CrCl= 85 ml/min A: Blood culture shows no growth. Sputum culture is pending. P: Patient is on Zosyn 4.5g IV Q6H. Vancomycin ordered for pharmacy to dose. Current vancomycin trough is 6 mcg/mL Change to Vancomycin 1,250 mg IV Q8H. Vancomycin trough is drawn before the 4th dose on 06/10/21 at 0730. Vancomycin goal trough is between 15-20 mcg/ml. Pharmacy will follow and or advise on antibiotics use as needed.
[2021-06-09] MEDS ORDERED: OMEPRAZOLE20 MG PO (15:14)
[2021-06-09] MEDS ORDERED: VERAPAMIL240 M1 PO (15:16)
--- NOTE | 2021-06-09 15:28 | NUR ---
SITTING UP IN RECLINER WITH SPOUSE VISITING, VOICING FRUSTRATION AT THIS TIME STATING HE HAS HAD MANY ABDOMINAL PROCEDURES FROM WHICH HE RECOVERED VERY QUICKLY AND RESUMED HIS NORMAL ACTIVITIES BUT CANT UNDERSTAND WHY HE FEELS THE WAY HE DOES NOW WITH FULLNESS AND MUCH DISCOMFORT IN HIS STOMACH, MEDICAL TEAM ADVISED TO ALLOW NEW MED TO TAKE EFFECT, PT STATED UNDERSTANDING, WILL CONTINUE TO MONITOR.
[2021-06-09] MEDS ORDERED: REPATHA140 MG/ML SC (15:29)
[2021-06-09] MEDS ORDERED: FISH OIL1200 M1 PO (15:31)
[2021-06-09] MEDS ORDERED: MULT VITAMI1 PO (15:33)
[2021-06-09] MEDS ORDERED: MILK THISTLE250 MG PO (15:34)
--- NOTE | 2021-06-09 20:00 | NUR ---
PATIENT IS UP AND AMBULATING IN THE HALLS-STEADY ON HIS FEET. ABD IS STILL DISTANDED BUT MORE SOFT. PASSING FLATUS PER PATIENT-NO STOOLS YET TODAY. DENIES ANY DIFFICULTY WITH URINATION. LUNGS WITH CRACKLES IN BASES OTHERWISE CLEAR. MOSTLY NON-PRODUCTIVE COUGH. TRACE PEDAL EDEMA NOTED. PULSES ARE PALPABLE. IV SITE TO LEFT FOREARM INTACT AND HEALTHY WITH GOOD BLOOD RETURN. TELE MONITOR IN PLACE-LAST READING WAS SR-80. WILL CONT TO MONITOR.
--- NOTE | 2021-06-09 22:27 | NUR ---
PATIENT RESTING IN BED AT THIS TIME-STERISTRIPS APPLIED TO ABD INCISION-WELL APPROXIMATED AND HEALING WELL. ABD IS DISTENDED BUT SOFT. HYERACTIVE BS NOTED. PATIENT STATES NO BM YET TODAY BUT IS PASSING FLATUS. ONLY EATING IN SMALL AMTS BEFORE BECOMING BLOATED. FREQUENT AMBULATION IN THE HALLS-STEAY ON HIS FEET. IV SITE TO LEFT FOREARM INTACT AND HEALTHY AT THIS TIME. TELE MONITOR IN PLACE. MEDICATED FOR POST-OP PAIN WITH LORTAB 7.5/325MG PO FOR 4/10 ON PAIN SCALE. SAFETY PRECAUTIONS REINFORCED. CALL LIGHT IN REACH. WILL CONT TO MONITOR.
[2021-06-10] VITALS: BP 135/79
--- NOTE | 2021-06-10 00:50 | NUR ---
PATIENT AWAKE AND UP AND AMBULATING IN THE HALLS. CAN'T SLEEP. FRUSTATED WITH LONG HOSPITAL STAY AFTER SURGERY. IV VANCO HUNG AND INFUSING VIA LEFT FOREARM SITE. SITE REMAINS HEALTHY WITH GOOD BLOOD RETURN. IV TO RAC D/C'ED WITH CATH INTACT. TAKING PO FLUIDS WITH HYPERACTIVE BS. SITTING UP IN RECLINER AT THIS TIME. CALL LIGHT IN REACH. WILL CONT TO MONITOR.
[2021-06-10 04:00] VITALS: BP 141/85
--- NOTE | 2021-06-10 05:00 | NUR ---
PATIENT CONT TO AMBULATE IN THE HALLS-STEADY ON HIS FEET. PATIENT IS FRUSTRATED WITH HIS SLOW RECOVERY FROM SURGERY. STATES THAT HE FEELS LIKE HE SHOULD BE FEELING BETTER WITH HIS GI STATUS. ABD IS STILL DISTENDED-STILL WITH HYPERACTIVE BS. PASSING FLATUS. SO BM TONIGHT. ALLOWED PATIENT TO EXPRESS HIS CONCERNS AND OFFERED REASSURANCE. WILL CONT TO MONITOR.
[2021-06-10 08:00] VITALS: BP 134/72
--- NOTE | 2021-06-10 08:00 | NUR ---
PT SITTING IN CHAIR. A&O X3. NO DISTRESS NOTED. CLEAR BREATH SOUNDS UPON AUSCULTATION. HYPERACTIVE BOWEL SOUNDS TO RL & RU QUADRANTS AND HYPOACTIVE TO PASCALE & LL QUADRANTS. PT DENIES HAVING ANY RECENT BMS. IV HEALTHY AND PATENT. ASSESSMENT COMPLETED. DISCUSSED POC. CALL LIGHT WITHIN REACH.
[2021-06-10 08:11] LABS: HEMOGLOBIN 11.3 g/dl (14.0-18.0); IMMATURE GRANULOCYTES 0.3 % (0.0-5.0); MEAN CELL VOLUME 101.2 fL CALC (80.0-100.0); MEAN CORPUSCULAR HGB 32.7 pG CALC (26.0-32.0); MEAN CORPUSCULAR HGB CONC 32.3 g/dL CAL (32.0-36.0); NEUT# 5.89 thou/uL (1.82-7.42); RED BLOOD COUNT 3.46 mill/uL (4.70-6.10); RED CELL DISTRI WIDTH 12.3 % (11.5-15.5)
[2021-06-10 08:21] LABS: ALBUMIN 2.9 g/dL (3.2-5.0); BUN 9 mg/dL (8-23); BUN/CREATININE RATIO 10 (12-20 (CALC)); CARBON DIOXIDE 29 mmol/l (22-30); CHLORIDE 105 mmol/l (95-108); CREATININE 0.9 mg/dL (0.7-1.3); GFR > 60 ML/MIN (>=60 (CALC)); GFR FOR AFR.AMER. > 60 ML/MIN (>=60 (CALC)); SODIUM 140 mmol/l (137-146); TOTAL PROTEIN 5.7 g/dL (6.3-8.2)
[2021-06-10 08:22] LABS: ALKALINE PHOSPHATASE 114 u/l (38-126); ANION GAP 10 (6-22 (CALC)); BILIRUBIN, TOTAL 0.5 mg/dL (0.0-1.4); POTASSIUM 3.9 mmol/l (3.5-5.1); SGOT/AST 49 u/l (19-48)
--- NOTE | 2021-06-10 08:23 | NUR ---
DR PEREZ AT BEDSIDE DISCUSSING POC
--- NOTE | 2021-06-10 10:38 | NUR ---
DR OTT AND Temitope MOORE APRN AT BEDSIDE DISCUSSING POC
--- NOTE | 2021-06-10 10:48 | NUR ---
S: GREGORY NEELY is a 70 M who presents with fever, leukocytosis, and bilateral infiltrates. He has a history of chronic cluster headaches, GERD, knee pain, and fatty liver disease. All medications in patient's chart were reviewed. O: VS: BP 134/72 mmHg, P 88 bpm, RR 20 bpm, T 97.7 F W 106.3 kg, HT 177.8 cm, Scr= 1, CrCl= 86.32 ml/min A: Preliminary blood culture shows no growth Sputum culture is pending P: Patient is on Zosyn 4.5g IV Q6H Vancomycin ordered for pharmacy to dose. Pt on Vancomycin 1250mg IV Q8H. Vancomycin trough on 06/11/21 at 0730. Trough level: 15 mcg/ml Vancomycin goal trough is between 15-20 mcg/ml. Pharmacy will follow and or advise on antibiotics use as needed.
[2021-06-10 16:01] VITALS: BP 135/71
--- NOTE | 2021-06-10 16:37 | NUR ---
PT SITTING IN CHAIR. NO NEEDS AT THIS TIME. CALL LIGHT WITHIN REACH.
[2021-06-10 19:00] VITALS: BP 151/74
--- NOTE | 2021-06-10 19:11 | NUR ---
INFORMED CONSENT OBTAINED BY Renetta MORRISON LPN. PT TOLERATED BOWEL PREP WELL.
--- NOTE | 2021-06-10 20:55 | NUR ---
PATIENT RESTING IN BED AT THIS TIME WITH O2 VIA NASAL CANNULA AT 2LPM. REFUSING HER SIMETHICONE AND LOVENOX DUE TO EGD AND COLONOSCOPY TOMORROW. MEDICATED WITH BENEDRYL 25MG IVP FOR SLEEP, NPO AFTER MIDNIGHT FOR TESTING IN MORNING. CONSENT IS ALREADY SIGNED. FINISHED NULYTELY EARLIER-PASSING MINTO GREEN STOOLS LAST. ABD REMAINS SOFTLY DISTENDED WITH BS+. ABD INCISION INTACT AND WELL APPROXIMATED WITH STERI-STRIPS. SAFETY PRECAUTIONS REINFORCED. CALL LIGHT IN REACH. WILL CONT TO MONITOR.
--- NOTE | 2021-06-10 23:25 | NUR ---
PATIENT RESTING IN BED AT THIS TIME WITH O2 VIA NASAL CANNULA IN PLACE. ,EYES ARE CLOSED AND RESPS ARE EVEN AND UNLABORED. TELE MONITOR IN PLACE. SALINE LOCK TO LEFT FOREARM. CALL LIGHT IN REACH. WILL CONT TO MONITOR.
[2021-06-11] VITALS: BP 155/56
[2021-06-11 04:00] VITALS: BP 136/70
--- NOTE | 2021-06-11 06:16 | NUR ---
PATIENT RESTING IN BED WITH O2 VIA NASAL CANNULA IN PLACE AT 2LPM. PATIENT WITH EYES CLOSED AND RESPS ARE EVEN BUT PATIENT DOES HAVE NOISY BREATHING WHEN SLEEPING DEEPLY. NPO FOR PROCEDURES THIS MORNING. SALINE LOCK TO LEFT WRIST INTACT. TELE MONITOR IN PLACE-LAST READING WAS SR-86. CALL LIGHT IN REACH. WILL CONT TO MONITOR.
[2021-06-11 07:49] LABS: HEMATOCRIT 39.3 % (39.0-50.0); HEMOGLOBIN 12.5 g/dl (14.0-18.0); MEAN CELL VOLUME 100.8 fL CALC (80.0-100.0); MEAN CORPUSCULAR HGB 32.1 pG CALC (26.0-32.0); MEAN CORPUSCULAR HGB CONC 31.8 g/dL CAL (32.0-36.0); RED BLOOD COUNT 3.9 mill/uL (4.70-6.10); RED CELL DISTRI WIDTH 12.3 % (11.5-15.5)
[2021-06-11 07:51] VITALS: BP 120/73
--- NOTE | 2021-06-11 08:03 | NUR ---
PT TAKEN VIA STRETCHER ACCOMPANIED BY DORI CULP IN STABLE CONDITION. IV HEALTHY AND PATENT.
[2021-06-11 08:13] LABS: ANION GAP 14 (6-22 (CALC)); BUN 9 mg/dL (8-23); BUN/CREATININE RATIO 10 (12-20 (CALC)); CARBON DIOXIDE 28 mmol/l (22-30); CHLORIDE 106 mmol/l (95-108); CREATININE 0.9 mg/dL (0.7-1.3); GFR > 60 ML/MIN (>=60 (CALC)); GFR FOR AFR.AMER. > 60 ML/MIN (>=60 (CALC)); POTASSIUM 3.8 mmol/l (3.5-5.1); SODIUM 144 mmol/l (137-146)
--- NOTE | 2021-06-11 10:00 | NUR ---
PT ARRIVED FROM OR IN STABLE CONDITION. O2 VIA NC @2L IN PLACE. PT DENIES ANY NEEDS AT THIS TIME. NEW IV SITE #20G RH WITH REMAINING LR INFUSING AT THIS TIME. CALL LIGHT WITHIN REACH.
[2021-06-11 10:29] VITALS: BP 120/73
--- NOTE | 2021-06-11 12:23 | NUR ---
PT SITTING UP IN CHAIR. NO DISTRESS NOTED. CALL LIGHT WITHIN REACH.
--- NOTE | 2021-06-11 13:56 | NUR ---
S: GREGORY NEELY is a 70 M who presents with SBO, Leukocytosis, and BL lower lobe infiltrates. He has a history of chronic cluster headaches, gerd, chronic knee pain, and hepatic steatosis. All medications in patient's chart were reviewed. O: VS: BP 120/73 mmHG, P 80 beats/min, RR 22 breaths/min, T 98.4F W 106.5 kg, HT 70 inches, Scr=1, CrCl= 86.4 ml/min A: Blood cultures on 06/05/2021 show no growth. Sputum culture on 06/09/2021 showed normal respiratory celso. P: Trough on 06/11/2021 is 17 mcg/mL. Recheck trough on 06/12/2021 @ 0730. Continue Vancomycin 1250 MG IV Q8H on 06/11/2021 @ 0800 Vancomycin goal trough is between <15-20 mcg/ml>. Pharmacy will follow and or advise on antibiotics use as needed.
[2021-06-11 16:08] VITALS: BP 124/83
--- NOTE | 2021-06-11 16:41 | NUR ---
PT SITTING IN CHAIR. NO DISTRESS NOTED. PT DENIES ANY NEEDS AT THIS TIME. DANIEL DAVIS INITIATED. CALL LIGHT WITHIN REACH.
[2021-06-11 19:00] VITALS: BP 128/69
--- NOTE | 2021-06-11 19:40 | NUR ---
PATIENT OBSERVED SITTING UP IN BED WATCHING TV. ALERT AND ORIENTED. ABLE TO MAKE NEEDS KNOWN. DENIES ANY PAIN. NO DISTRESS NOTED. ASSESSMENT COMPLETE AT THIS TIME. BELLY REMAINS WITH SLIGHT DISTENTION. ''THIS IS MY NORMAL''. PATIENT VOICED GETTING UP AMBULATING TO THE BATHROOM TO HAVE BOWEL MOVEMENTS WHEN NECESSARY. CALL LIGHT AND BELONGINGS REMAIN IN REACH.
--- NOTE | 2021-06-11 23:30 | NUR ---
PATIENT RESTING IN BED, QUIETLY. NO COMPLAINTS VOICED AT THIS TIME. CALL LIGHT AND BELONGINGS REMAIN IN REACH.
[2021-06-12] VITALS: BP 140/82
[2021-06-12 04:00] VITALS: BP 120/63
--- NOTE | 2021-06-12 04:10 | NUR ---
PATIENT RESTING IN BED QUIETLY. NO COMPLAINTS VOICED AT THIS TIME. CALL LIGHT AND BELONGINGS REMAIN IN REACH.
--- NOTE | 2021-06-12 07:30 | NUR ---
RECIEVED REPORT FROM ROBBI BENAVIDES
[2021-06-12 07:56] LABS: HEMATOCRIT 39.1 % (39.0-50.0); HEMOGLOBIN 12.7 g/dl (14.0-18.0); MEAN CORPUSCULAR HGB 32.2 pG CALC (26.0-32.0); MEAN CORPUSCULAR HGB CONC 32.5 g/dL CAL (32.0-36.0); RED BLOOD COUNT 3.95 mill/uL (4.70-6.10); RED CELL DISTRI WIDTH 12.1 % (11.5-15.5)
--- NOTE | 2021-06-12 08:00 | NUR ---
PT AMBULATING HALLS WITH STEADY GAIT.
[2021-06-12 08:31] LABS: ANION GAP 14 (6-22 (CALC)); BUN 9 mg/dL (8-23); BUN/CREATININE RATIO 11 (12-20 (CALC)); CARBON DIOXIDE 28 mmol/l (22-30); CHLORIDE 106 mmol/l (95-108); CREATININE 0.8 mg/dL (0.7-1.3); GFR > 60 ML/MIN (>=60 (CALC)); GFR FOR AFR.AMER. > 60 ML/MIN (>=60 (CALC)); POTASSIUM 4.3 mmol/l (3.5-5.1); SODIUM 144 mmol/l (137-146)
[2021-06-12 08:37] VITALS: BP 128/74
--- NOTE | 2021-06-12 08:37 | NUR ---
PT RESTING IN SEMI FOWLERS POSITION. PT IS A/O X3. ASSESSMENT AND VITALS COMPLETED. BP 128/74,HR 82,O2 95%ON ROOM AIR. RESPIRATIONS ARE EVEN AND UNLABORED WITH NO DISTRESS NOTED. LUNG SOUNDS ARE CLEAR. HEART RHYTHM NORMAL WITH TELE IN PLACE, ST PER ER MONITORING. BOWEL SOUNDS ARE ACTIVE, X3 THIS MORNING. PT REPORTS DIARRHEA FROM BOWEL PREP. #20G RH FLUSHED,SENSITIVE BUT SITE APPEARS HEALTHY AND PATENT. PULSES STRONG. SURGICAL SITE TO ABD REMAINS CDI WITH STERI STRIPS IN PLACE. PT DENIES OF ANY PAINS OR DISCOMFORTS AT THIS TIME. ALL SAFTEY PRECAUTIONS ARE IN PLACE WITH CALL LIGHT IN REACH. WILL CONTINUE TO MONITOR.
--- NOTE | 2021-06-12 09:00 | NUR ---
RYAN THROUGH OF 18 NOTED. PHARMAC CALLED, NO REDOSING. DOSE TO BE ADMINISTERED.
--- NOTE | 2021-06-12 09:50 | NUR ---
DR OTT AND DELFINA,ANCHARLES AT BEDSIDE
[2021-06-12] MEDS ORDERED: FLORASTOR250 M1 PO (11:02)
--- NOTE | 2021-06-12 12:02 | NUR ---
PT RESTING IN CHAIR. RESPIRATIONS ARE EVEN AND UNLABORED ON ROOM AIR. #20G RH INFUSING WITH IV VANCO. TELE MONITORING IN PLACE. SURGICAL SITE TO ABD REMAINS CDI WTI STER STRIPS. PT DNEIES OF ANY PAINS OR DISCOMFORTS AT THIS TIME.PT INFORMED OF DELAY OF DC DUE TO GETTING 1600 DOSE OF VANCO. PT VERBALIZED UNDERSTANDING. ALL SAFETY PRECAUTIONS ARE IN PLACE WITH CALL LIGHT IN REACH. WILL CONTINUE TO MONITOR.
[2021-06-12 12:13] VITALS: BP 128/73
--- NOTE | 2021-06-12 15:37 | NUR ---
PT EDUCATED ON DC INSTRUCTIONS AND NEW MEDICATION. PT VERBALIZED UNDERSTANDING. RESPIRATIONS REMAINS EVEN AND UNLABORED ON ROOM AIR. #20G RH REMAIS INFUSING WITH IVF ANTIBIOTIC. SITE APEARS PATENT. PT DNEIES OF ANY ADDITIONAL NEEDS. ALL SAFETY PRECAUTIONS ARE IN PLACE WITH CALL LIGHT IN REACH AND AT BEDSIDE. WILL CONTINUE TO MONITOR
[2021-06-12 16:40] VITALS: BP 131/71
--- NOTE | 2021-06-12 18:02 | NUR ---
Discharge instructions given. Patient verbalizes understanding of same. Discharged in stable condition via Wheelchair to Home with staff. All belongings sent with pt. PT DC HOME VIA WHEELCHAIR IN STABLE CONDITION ACCOMPAINED BY TENZIN SMITH WITH ALL DC INSTRUCTIONS AND NEW MEDICATIONS
== END 2021-06-12 18:02 | disposition home or self-care (01) | DRG 344 ==
LOC: ED 23:28 → ED-I 06-02 00:37 → ED 06-02 02:11 → MS2 06-02 02:12
PROVIDERS: Emergency Medicine; Nurse Practitioner; ADMIT Hospitalist; ATTEND Hospitalist
PROC: 0DJD0ZZ Inspection of Lower Intestinal Tract, Open Approach (ICD-10-PCS; principal; 2021-06-02)
PROC: 0DJD4ZZ Inspection of Lower Intestinal Tract, Percutaneous Endoscopic Approach (ICD-10-PCS; 2021-06-02)
PROC: 0DJD8ZZ Inspection of Lower Intestinal Tract, Via Natural or Artificial Opening Endoscopic (ICD-10-PCS; 2021-06-11)
PROC: 0DJ08ZZ Inspection of Upper Intestinal Tract, Via Natural or Artificial Opening Endoscopic (ICD-10-PCS; 2021-06-11)
DX: K56.600 Partial intestinal obstruction, unspecified as to cause (principal); J69.0 Pneumonitis due to inhalation of food and vomit; K91.89 Other postprocedural complications and disorders of digestive system; K56.7 Ileus, unspecified; K21.9 Gastro-esophageal reflux disease without esophagitis; K76.0 Fatty (change of) liver, not elsewhere classified; K29.70 Gastritis, unspecified, without bleeding; Y83.8 Other surgical procedures as the cause of abnormal reaction of the patient, or of later complication, without mention of misadventure at the time of the procedure; Z90.49 Acquired absence of other specified parts of digestive tract; Z80.0 Family history of malignant neoplasm of digestive organs; Z20.822 Contact with and (suspected) exposure to COVID-19
CPT/HCPCS: J0131; J1650; J3370; Q3014; Q9967; S0164